=== PATIENT | female | born 1965 | race Caucasian/White ===

== ENCOUNTER 2017-11-02 13:07 | Emergency (ER) | payer MEDICAID | END 2017-11-02 14:24 | disposition home or self-care (01) | LOC: EDH 13:07 | DX: G89.29 Other chronic pain (principal); M54.5 Low back pain; M79.602 Pain in left arm; Z88.8 Allergy status to other drugs, medicaments and biological substances; Z72.0 Tobacco use; Z98.51 Tubal ligation status ==